=== PATIENT | male | born 1960 | race Hispanic/Latino ===

== ENCOUNTER 2016-06-28 13:18 | Emergency (ER) | payer OTHER ==
[~2016-06-28] VITALS: Ht 167.6 cm; Wt 74.8 kg
[2016-06-28 13:24] VITALS: BP 165/94
--- NOTE | 2016-06-28 14:05 | ED GENERAL ADULT ---
See Addendum History of Present Illness General Chief Complaint: Sore Throat, Dental Pain Stated Complaint: DENTAL PAIN, [place] Source: patient Exam Limitations: no limitations Vital Signs & Intake/Output Vital Signs & Intake/Output Vital Signs Date Time Temp Pulse Resp B/P B/P Pulse O2 O2 Flow FiO2 Mean Ox Delivery Rate 06/28 1324 98.5 84 18 165/94 96 Room Air Room Air Allergies Coded Allergies: No Known Allergies (06/28/16) Reconcile Medications Oxycodone HCl/Acetaminophen (Percocet 5-325 MG Tablet) 5 MG-325 MG TABLET 1 TAB PO BID PRN PAIN Penicillin V Potassium 500 MG TABLET 1 TAB PO BID INFN Triage Note: TRIAGE: 56 Y/O MALE PRESENTS C/O RIGHT EAR PAIN AND RIGHT SIDED DENTAL PAIN SINCE YESTERDAY. "I FELT SOME STUFF DRIP IN MY EAR AND BEFORE I HAD AN EAR INFECTION, I CAME HERE TO GET CHECKED OUT." Triage Nurses Notes Reviewed? yes Onset: Abrupt Duration: day(s): Timing: recent history HPI: 06/28/16 2:10 PM This is a 56-year-old man who presents to the emergency department complaining of right ear pain and right upper tooth pain. The patient states he was in his usual state of health until approximately 24 hours ago when he developed pain in right upper molar and also pain in his right ear. He also says that he noted some discharge from the right ear. He denies fever chest pain shortness of breath or other complaints. He does say that the pain is triggered a migraine. He does have a history of migraines. The onset of the symptoms were abrupt, the duration has been approximately 24 hours, the severity is significant as his symptoms required him to come in the emergency department for care. He made an appointment with the dentist for Wednesday. Past History Travel History Traveled to [place] past 21 day No Medical History Any Pertinent Medical History? see below for history Cardiovascular: hypertension, hyperlipidemia Surgical History Surgical History: non-contributory Psychosocial History Tobacco Use: Never used ETOH Use: denies use Illicit Drug Use: denies illicit drug use Family History Hx Contributory? No Review of Systems Review of Systems Constitutional: Denies: fever. EENTM: Reports: ear pain, tooth pain. Respiratory: Denies: short of breath. Cardiovascular: Denies: chest pain. GI: Denies: abdominal pain. Genitourinary: Reports: no symptoms. Musculoskeletal: Denies: back pain. Skin: Denies: rash. Neurological/Psychological: Reports: headache. Hematologic/Endocrine: Denies: bruising, bleeding. Physical Exam Physical Exam General Appearance: well developed/nourished, alert, awake, anxious, mild distress Head: atraumatic, normal appearance Eyes: Bilateral: normal appearance, PERRL, EOMI. Ears, Nose, Throat: normal pharynx, normal ENT inspection Neck: normal inspection, supple, full range of motion Respiratory: normal breath sounds, chest non-tender, no respiratory distress Cardiovascular: regular rate/rhythm Peripheral Pulses: 4+ radial (R), 4+ radial (L) Back: normal range of motion Extremities: normal inspection, no edema Neurologic/Psych: no motor/sensory deficits, awake, alert, oriented x 3, normal gait Skin: intact, normal color, warm/dry Comments: Physical exam is significant for tenderness at the right temporomandibular joint. He has pain that is reproduced when he opens and closes his mouth and I put my finger in the right TMJ. The right tympanic membrane is normal. He does have a single right right upper posterior molar; status post extractions, but there is no distinct abscess. There is no soft tissue swelling. No anterior or posterior adenopathy. Core Measures ACS in differential dx? No CVA/TIA Diagnosis: No Severe Sepsis Present: No Septic Shock Present: No Progress Differential Diagnoses I considered the following diagnoses in my evaluation of the patient: [Dental abscess, dental caries, TMJ, otitis media, otitis externa, cervical adenitis, parotitis, retropharyngeal abscess, peritonsillar abscess, pharyngitis] Plan of Care: Percocet and penicillin as directed. He will follow-up with a dentist on Wednesday. Initial ED EKG: none Departure Departure Disposition: HOME OR SELF CARE Condition: Stable Clinical Impression Primary Impression: Toothache Secondary Impressions: Migraine, TMJ (temporomandibular joint syndrome) Referrals: NAIDA BARRAGAN,JARED Jerry (PCP/Family) Departure Forms: Customer Survey General Discharge Information Prescriptions: Current Visit Scripts Oxycodone HCl/Acetaminophen (Percocet 5-325 MG Tablet) 1 TAB PO BID PRN PAIN #10 TAB Penicillin V Potassium 1 TAB PO BID #20 TAB Critical Care Note Critical Care Note Critical Care Time: non-applicable
[2016-06-28] MEDS ORDERED: PENICILLIN V P500 M1 PO (14:35)
[2016-06-28] MEDS ORDERED: PERCOCET 5-3251 EACH PO (14:35)
== END 2016-06-28 14:43 ==
LOC: ERH 13:18
DX: K08.89 Other specified disorders of teeth and supporting structures (principal); M26.629 Arthralgia of temporomandibular joint, unspecified side; G43.909 Migraine, unspecified, not intractable, without status migrainosus